=== PATIENT | male | born 1960 | race Caucasian/White ===

== ENCOUNTER 2019-10-11 06:28 | Day surgery (SDC) | payer BC ==
[2019-10-07 15:20] LABS: BASOPHILS % (AUTO) 0.4 % (0-1); EOSINOPHILS # (AUTO) 0.5 X10'3 (0-0.9); EOSINOPHILS % (AUTO) 5.8 % (0-6); LYMPHOCYTES # (AUTO) 1.4 X10'3 (1.1-4.8); LYMPHOCYTES % (AUTO) 16.5 % (21-51); MEAN CORPUSCULAR HEMOGLOBIN 30.8 PG (27.0-31.0); MEAN CORPUSCULAR HGB CONC 34.4 g/dL (33.0-36.5); MEAN CORPUSCULAR VOLUME 89.6 FL (78-98); MEAN PLATELET VOLUME 8.2 FL (7.4-10.4); MONOCYTES # (AUTO) 0.6 X10'3 (0-0.9); MONOCYTES % (AUTO) 7.1 % (2-12); NEUTROPHILS # (AUTO) 6.1 X10'3 (1.8-7.7); NEUTROPHILS % (AUTO) 70.2 % (42-75); PRE OP HEMOGLOBIN 16.5 g/dL (14.0-17.9); PRE OP PLATELET COUNT 243 X10'3 (140-440); RED BLOOD COUNT 5.35 X10'6 (4.70-6.10); RED CELL DISTRIBUTION WIDTH 13.8 % (11.5-14.5)
[2019-10-07 15:32] LABS: PRE OP PROTIME 10.3 SECONDS (9.0-12.0)
[2019-10-07 15:43] LABS: ALBUMIN 4.2 G/DL (3.4-5.0); ALBUMIN/GLOBULIN RATIO 1.2 (1.1-1.5); ALKALINE PHOSPHATASE 70 IU/L (46-116); BLOOD UREA NITROGEN 8 MG/DL (7-18); BUN/CREATININE RATIO 8.5 (5.4-32.0); CALCIUM 8.7 MG/DL (8.5-10.1); CHLORIDE 105 MMOL/L (99-107); CREATININE 0.94 MG/DL (0.60-1.10); PRE OP ALT 51 U/L (30-65); PRE OP ANION GAP 9 (8-16); PRE OP AST 41 U/L (10-37); PRE OP BILIRUB, TOTAL 1.1 MG/DL (0.0-1.0); PRE OP GLUCOSE 82 MG/DL (70-104); PRE OP POTASSIUM 3.9 MMOL/L (3.4-5.1); PRE OP SODIUM 142 MMOL/L (135-145); TOTAL CARBON DIOXIDE 27.8 MMOL/L (24-32); TOTAL PROTEIN 7.7 G/DL (6.4-8.2); eGFR 82 ML/MIN
[~2019-10-11] VITALS: Ht 185.4 cm; Wt 90.7 kg
[2019-10-11] VITALS (7 sets, daily range): BP systolic 133–146; BP diastolic 80–89
[~2019-10-11 06:28] MED LIST: NO HOME MEDS; famotidine 10mg tablet PO ONE; ringers solution, lacted 1,000 ML IV SCH
[2019-10-11] MEDS ORDERED: albuterol 2.5 MG/3 ML nebule NEB ONE (07:00)
[2019-10-11] MEDS ORDERED: dexamethasone sod phosphate 10mg/ml inj IM ONE ×2 (07:00→07:45)
[2019-10-11] MEDS ORDERED: LIDOcaine 2% (20mg/ml) 5ml vial ONE (08:40)
[2019-10-11] MEDS ORDERED: propofol inj 20 ML IV ONE (08:40)
[2019-10-11] MEDS ORDERED: fentaNYL/PF 50MCG/1 ML 2ML syringe ONE (08:41)
[2019-10-11] MEDS ORDERED: midazolam 2 mg/2 ml injection ONE (08:41)
[2019-10-11] MEDS ORDERED: LIDOcaine 1% W/epiNEPHrine 1:100,000 20ml vial IJ ONE (08:55)
[2019-10-11] MEDS ORDERED: BUPIVAcaine 0.5% W/EPI /PF 30ml vial IM ONE (08:55)
[2019-10-11] MEDS ORDERED: cocaine 4% topical solution 4ml bottle ONE (09:02)
[2019-10-11] MEDS ORDERED: LIDOcaine 1% W/epiNEPHrine 1:100,000 20ml vial ONE (09:02)
[2019-10-11] MEDS ORDERED: oxymetazoline 15 ML nasal spray NS ONE (09:03)
[2019-10-11] MEDS ORDERED: mupirocin 2% ointment 22GM ONE (09:03)
[2019-10-11] MEDS ORDERED: sevoflurane 250ml liquid IH ONE (09:20)
[2019-10-11] MEDS ORDERED: rocuronium 10mg/ml inj IV ONE (09:20)
[2019-10-11] MEDS ORDERED: ceFAZolin 1000mg inj ONE ×2 (09:52)
[2019-10-11] MEDS ORDERED: ringers solution, lacted 1,000 ML IV SCH (10:17)
[2019-10-11] MEDS ORDERED: meperidine/PF 25mg/ml syringe IV PRN ×3 (10:20)
[2019-10-11] MEDS ORDERED: proCHLORperazine 10 MG/2 ml inj IV PRN (10:20)
[2019-10-11] MEDS ORDERED: ondansetron/PF 4mg/2ml inj IV PRN (10:20)
[2019-10-11] MEDS ORDERED: morphine 4 MG/ML inj SYRINge IV PRN ×2 (10:20)
[2019-10-11] MEDS ORDERED: ondansetron/PF 4mg/2ml inj ONE (10:42)
[2019-10-11] MEDS ORDERED: meperidine/PF 50mg/ml syringe ONE (10:42)
--- NOTE | 2019-10-11 11:20 | NUR ---
ARRIVED IN PACU VIA GURNEY FROM OR. DR ROSE IN ATTENDANCE. REPORT RECEIVED. SLEEPY BUT AROUSABLE. VS STABLE
[2019-10-11] MEDS ORDERED: salt irrigation nasal spray 45 ML SPRAY NS PRN (11:40)
[2019-10-11] MEDS ORDERED: oxymetazoline 15 ML nasal spray NS PRN (11:40)
--- NOTE | 2019-10-11 12:30 | NUR ---
GUY WATER. VS STABLE. AT BEDSIDE. REVIEWED DISCHARGE MEDS AND INSTRUCTIONS, INCLUDING GIVING THEM IRRIGATION SUPPLIES, AFRIN AND OCEAN MIST. SL BLOODY DRAINAGE FROM NARES, MUSTACHE DRESSING APPLIED. PT VOIDED. DISCHARGED TO CAR VIA W/C WITH OUT INCIDENT WITH NURSE IN ATTENDANCE
== END 2019-10-11 12:30 | disposition home or self-care (01) ==
LOC: PAS 06:28
PROVIDERS: ATTEND Otolaryngology
DX: J34.2 Deviated nasal septum (principal); J34.3 Hypertrophy of nasal turbinates; J34.89 Other specified disorders of nose and nasal sinuses; Z79.899 Other long term (current) drug therapy; Z79.01 Long term (current) use of anticoagulants; Z98.890 Other specified postprocedural states
CPT/HCPCS: 30140; 30520; 36415; 80053; 82948; 85025; 85576; 85610; 85730; 93005; 94640; A6402; C9250; J0690; J1100; J2001; J2175; J2250; J2405; J2704; J3010; J7040; J7120; A4618; A7000

== ENCOUNTER 2019-10-14 10:34 | Outpatient (CLI) | payer BC ==
[~2019-10-14 10:34] MED LIST changes: -famotidine 10mg tablet PO ONE; -ringers solution, lacted 1,000 ML IV SCH
== END 2019-10-14 23:59 | disposition home or self-care (01) ==
LOC: LAB 10:34
PROVIDERS: ATTEND Otolaryngology
DX: D69.1 Qualitative platelet defects (principal)
CPT/HCPCS: 36415; 85576